=== PATIENT | female | born 1970 | race Caucasian/White ===

== ENCOUNTER 2024-06-28 10:05 | Inpatient (IN) | payer OTHER, SELFPAY ==
--- NOTE | 2024-06-28 10:12 | CTR_ITS ---
PROCEDURE INFORMATION: Exam: CT Lumbar Spine Without Contrast Exam date and time: 06/28/2024 10:43 AM Age: 53 years old Clinical indication: Low back pain TECHNIQUE: Imaging protocol: Computed tomography of the lumbar spine without contrast. Radiation optimization: All CT scans at this facility use at least one of these dose optimization techniques: automated exposure control; mA and/or kV adjustment per patient size (includes targeted exams where dose is matched to clinical indication); or iterative reconstruction. COMPARISON: No relevant prior studies available. RADIATION DOSE METRICS: Total DLP (mGy-cm): 804.3 FINDINGS: Bones/joints: There are mild degenerative changes of the sacroiliac joints. Post posterior decompression at L3-L5. No compression deformity no acute fracture. No spondylolisthesis. Posterior osteophyte disc complexes L2-L3, L3-L4 and L4-L5 with mild bony canal stenosis. [id number] narrowing of the L4-L5 and L5-S1 neural foramina. Vasculature: Calcified atheromas of the visualized arteries. Soft tissues: Unremarkable. CT/CT lumbar spine wo con* [id number] IMPRESSION: 1. Post posterior decompression at L3-L5. 2. Mild multilevel bony canal stenosis and [id number] neural foraminal narrowing.
--- NOTE | 2024-06-28 10:15 | ED_ITS ---
HPI - Back Pain/Injury General: Chief Complaint: Extremity Problem,Nontraumatic Stated Complaint: lower back pain Time Seen by Provider: 06/28/24 10:09 History of Present Illness: 53-year-old female with a history of chr onic back issues with worsening symptoms over the last 3 weeks. She says she just moved to the area. She has an appointment next week with Dr. Lobo and orthopedics. She says the pain has become so bad that she just cannot take it anymore. She is quite tearful. She says she has some cramping in her legs now. She feels like her right leg is turning out. No saddle numbness, no urinary retention or incontinence, no focal motor deficit, no sensory deficit. no recent fever. no cough. no shortness of breath. no chest pain. no abdominal pain. no nausea or vomiting. no dysuria. no altered mental status. no edema. Related Data Home Medications ?Medication ?Instructions ?Recorded ?Confirmed acetaminophen 500 mg tablet 1,000 mg PO Q6H PRN Fever Or Pain 06/28/24 06/28/24 (Tylenol Extra Strength) amlodipine 10 mg-valsartan 320 mg 1 tab PO DAILY 06/2806/28/24 tablet levothyroxine 175 mcg tablet 175 mcg PO DAILY 06/28/24 06/28/24 metoprolol succinate 100 mg 200 mg PO DAILY 06/28/24 0 06/28/24 tablet,extended release 24 hr rosuvastatin 40 mg tablet 40 mg PO DAILY 06/28/2406/14 Previous Rx's ?Medication ?Instructions ?Recorded cyclobenzaprine 10 mg tablet 10 mg PO Q8H PRN muscle s pasm #20 06/28/24 tabs diclofenac sodium 50 mg 50 mg PO BID PRN pain #14 ta bs 06/28/24 tablet,delayed release hydrocodone 5 mg-acetaminophen 325 1 tab PO Q6H PRN pa in #20 tabs 06/28/24 mg tablet prednisone 20 mg tablet 60 mg (3 x 20 mg) PO DAILY # 20 tabs 06/28/24 Review of Systems Narrative: Constitutional symptoms: Negative except as documented in HPI. Skin symptoms: Negative except as documented in HPI. Eye symptoms: Negative except as documented in HPI. ENMT symptoms: Negative except as documented in HPI. Respiratory symptoms: Negative except as documented in HPI. Cardiovascular symptoms: Negative except as documented in HPI. Gastrointestinal symptoms: Negative except as documented in HPI. Genitourinary symptoms: Negative except as documented in HPI. Musculoskeletal symptoms: Negative except as documented in HPI. Neurologic symptoms: Negative except as documented in HPI. Psychiatric symptoms: Negative except as documented in HPI. Endocrine symptoms: Negative except as documented in HPI. Physical Exam Narrative: EXAM NARRATIVE: General: Alert, no acute distress. Head: Normocephalic Neck: Trachea midline Eye: Extraocular movements are intact. Ears, nose, mouth and throat: Oral mucosa moist Respiratory: Respirations are non-labored Musculoskeletal: Normal ROM Back: no step off, no focal tenderness, some paraspinal muscle tenderness. The patient does appear to have some mild foot drop whenever she walks. This is on the right side. Neurological: Alert and oriented, No focal neurological deficit observed. Psychiatric: Cooperative, appropriate mood & affect. Course Vital Signs: Vital signs: Vital Signs Temperature 97.8 F 06/28/24 10:18 Pulse Rate 80 06/28/24 10:18 Respiratory Rate 18 06/28/24 10:18 Blood Pressure 144/83 06/28/24 10:18 Pulse Oximetry 98 06/28/24 10:18 MDM - Back Pain/Injury Medical Decision Making CT of lumbar spine: Status post decompression and L3-L5. Multilevel bony stenosis and mild to moderate neural foraminal narrowing. This was reviewed and interpreted by myself the emergency room physician. I also reviewed the radiology report. MRI of the lumbar spine: L3-L4 paracentral disc extrusion with caudal migration posterior to the L4 vertebral body causing compression of the right L4 nerve. This was reviewed and interpreted by myself the emergency room physician. I also reviewed the radiology report. Consultation: I spoke with Dr. Lobo who is on-call for orthopedics today and who is scheduled to see the patient next week in clinic. Given her neurologic symptoms and difficult to control symptoms he has agreed to see her in the hospital and likely work her in on Sunday for surgery. Consultation: I spoke with Dr. James Cates who is on-call for the hospitalist service who agrees to admission. Assessment and plan: Lumbar disc extrusion Right foot drop ?Patient received Norflex, Dilaudid, Toradol, Decadron. Also some IV Ativan prior to the MRI. -I discussed the patient with the hospitalist on-call who is admitting the patient. - Discussed findings and plan with patient. Answered any questions. - All imaging was reviewed and interpreted personally by myself, the ER physician. - Evaluation and treatment of this problem were appropriate in the emergency setting Labs Radiology Impressions Lumbar Spine CT 06/28/24 10:12 IMPRESSION: 1. Post posterior decompression at L3-L5. 2. Mild multilevel bony canal stenosis and [id number] neural foraminal narrowing. Lumbar Spine MRI 06/28/24 11:58 IMPRESSION: Right L3-L4 paracentral disc extrusion with caudal migration posterior to the L4 vertebral body, causing compression of the right L4 nerve. 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
[2024-06-28 10:18] VITALS: BP 144/83; PULSE 80; RESP 18; TEMP 36.6; O2SAT 98; BMI 28.8
[2024-06-28] MEDS: dexamethasone 10 mg/mL INJ IVP (10:43)
[2024-06-28] MEDS: ondansetron 2 mg/ML SDV 2 mL 4 MG IVP (10:44)
[2024-06-28] MEDS: orphenadrine 30 mg/mL Inj 2 mL 60 MG IVP (10:44)
[2024-06-28] MEDS: ketorolac 30 mg/mL INJ IVP (10:44)
--- NOTE | 2024-06-28 11:58 | MRR_ITS ---
PROCEDURE INFORMATION: Exam: MR Lumbar Spine Without Contrast Exam date and time: 06/28/2024 12:39 PM Age: 53 years old Clinical indication: Low back pain; Prior surgery; Surgery date: 6+ months; Surgery type: Diskectomy, laminectomy 2013, 2017; Additional info: Right foot drop. Low back pain TECHNIQUE: Imaging protocol: Magnetic resonance imaging of the lumbar spine without contrast. COMPARISON: CT lumbar spine wo con* [id number] 06/28/2024 10:43 AM FINDINGS: Bones/joints: Surgical changes of posterior L3-L5 decompression. No bone marrow replacement. Spinal cord: Visualized cord, conus medullaris and cauda equina are unremarkable without compression. L1-L2: Mild posterior disc bulge. No severe spinal canal stenosis. No significant neural foraminal narrowing. L2-L3: Desiccation of the disc with narrowing of the disc space. There is a posterior osteophyte disc complex causing mild thecal sac compression. No significant neural foraminal stenosis. L3-L4: There is a posterior osteophyte disc complex with right paracentral disc extrusion with caudal migration compressing the descending right L4 nerve root. No significant neural foraminal stenosis. L4-L5: There are Modic type 1 endplate changes (edema) at L4-L5 level. Posterior osteophyte disc complex with minimal anterior thecal sac compression. There is mild to moderate narrowing of bilateral neural foramina. L5-S1: Mild narrowing of the right neural foramen by disc bulge. Soft tissues: Mild edema in the soft tissues at the surgical bed. No collections are seen. MR/MR lumbar spine wo con* [id number] IMPRESSION: Right L3-L4 paracentral disc extrusion with caudal migration posterior to the L4 vertebral body, causing compression of the right L4 nerve.
[2024-06-28] MEDS: LORazepam 2 mg/mL INJ 1 mL 1 MG IVP (12:25)
[2024-06-28 16:00] VITALS: BP 141/72; PULSE 70; RESP 16; TEMP 36.4; O2SAT 94
[2024-06-28] MEDS: enoxaparin 40 mg/0.4 mL Syringe SUBCUT (16:02)
[2024-06-28 16:12] VITALS: BP 155/73; PULSE 62; O2SAT 95
--- NOTE | 2024-06-28 16:18 | USCV_ITS ---
Irma Vaz Age: 53 Gender: F : 1970 Exam Date: 06/28/2024 17:20 Ordering Phys: James Cates MD Technologist: Abrahan Scanlon Exam Location: [facility] [place] Indication: new murmur BP: 155 / 73 HR: 68 Rhythm: Sinus Technical Quality: Adequate MEASUREMENTS (Male / Female) Normal Values 2D ECHO LV Diastolic Diameter PLAX 4.7 cm 4.2 - 5.9 / 3.9 - 5.3 cm IVS Diastolic Thickness 0.9 cm 0.6 - 1.0 / 0.6 - 0.9 cm IVS Systolic Thickness 1.7 cm LVPW Diastolic Thickness 1.8 cm 0.6 - 1.0 / 0.6 - 0.9 cm LVPW Systolic Thickness 2.6 cm LVOT Diameter 2.0 cm LV Ejection Fraction 2D Teich 81.9 % LV Ejection Fraction MOD 4C 75.5 % LV Ejection Fraction MOD 2C 74.7 % LV Ejection Fraction 2C AL 74.8 % LA Diameter 3.5 cm RA Systolic Volume 4C AL 58.2 ml RA Systolic Volume 4C MOD 57.2 ml LA Sys Volume AL 49.4 cm cubed LA Sys Volume Index AL 23.8 cm cubed/m squared Aorta at Sinotubular Diameter 2.2 cm IVC Diameter 1.6 cm M-MODE LA Ao Ratio MM 1.3 AV Cusp Separation MM 1.2 cm DOPPLER AV Peak Velocity 252.0 cm/s LVOT Peak Velocity 115.0 cm/s AV Area Cont Eq vti 1.4 cm squared AV Area Cont Eq pk 1.5 cm squared MV Peak Velocity 104.0 cm/s MV Area PHT 5.2 cm squared Mitral E to A Ratio 0.7 TV Peak Velocity 201.0 cm/s TR Peak Velocity 250.0 cm/s TR Peak Gradient 25.0 mmHg TR Mean Velocity 198.0 cm/s TR Mean Gradient 16.4 mmHg TR Velocity Time Integral 63.4 cm PV Peak Velocity 101.0 cm/s RV Ejection Time 0.3 s FINDINGS Left Ventricle Normal left ventricular size, systolic function and wall thickness, with no regional wall motion abnormalities. Left ventricular ejection fraction is estimated at 60 %. Grade I/IV diastolic dysfunction (abnormal relaxation filling pattern), normal to mildly elevated filling pressures. Right Ventricle The right ventricle is normal in size and function. Right Atrium The right atrium is normal in size. Left Atrium The left atrium is normal in size. Mitral Valve Mildly thickened mitral valve. No mitral valve stenosis. Trace mitral valve regurgitation. Aortic Valve Moderate aortic valve calcification. No aortic valve stenosis. Trace aortic valve regurgitation. Tricuspid Valve Mild tricuspid valve regurgitation. Pulmonic Valve Structurally normal pulmonic valve without significant stenosis. There is no pulmonic regurgitation. Pericardium Normal pericardium without effusion. Aorta Normal ascending aorta dimension. IVC The inferior vena cava appears normal. CONCLUSIONS Normal left ventricular size, systolic function and wall thickness, with no regional wall motion abnormalities. Left ventricular ejection fraction is estimated at 60 %. Grade I/IV diastolic dysfunction (abnormal relaxation filling pattern), normal to mildly elevated filling pressures. Mild tricuspid valve regurgitation. There is no pericardial effusion. Right atrial pressure is around 5 mm of mercury. Joseph Singh MD (Electronically Signed) Final Date: 28 June 2024 18:49 S
[2024-06-28 16:44] LABS: Glucose Point of Care 207 mg/dL (70-110)
[2024-06-28] MEDS: cyclobenzaprine 10 mg Tablet PO (17:12)
[2024-06-28] MEDS: insulin lispro 100 unit/1 mL SUBCUT ×2 (17:13→21:09)
[2024-06-28 19:43] VITALS: BP 159/89; PULSE 81; RESP 17; TEMP 36.6; O2SAT 91
--- NOTE | 2024-06-28 20:09 | PM.HP ---
Providers/Chief Complaint Admitting Physician: James Cates Chief Complaint: lower back pain History of Present Illness Irma Vaz is a 53 year old female past medical history of hyperlipidemia, hypertension, diabetes mellitus, back surgery with post op DVT (no longer on OAC) and history of lap band surgery with postoperative blood clot presents with right leg weakness and difficulty walking for past 3 weeks. The patient describes the right leg as dragging and not moving with her when she walks at times. Associated symptoms include back pain with pain radiating to her right knee. Intermittently feels her right great toe is numb and might have a foot drop feeling. The patient denies any loss of bowel/bladder control today. No saddle anesthesia. She had a scheduled appointment with orthopedic surgery this up coming weak hwoever due to pain presented to ER. Currently 1 pack per day smoking and vaping cannabis daily. Denied alcohol use. No prior cardiac history. Upon arrival to ER today her work up included a lumbar CT followed by an lumbar MRI which showed Right L3-L4 paracentral disc extrusion with caudal migration posterior to the L4 vertebral body, causing compression of the right L4 nerve. no evidence of cord compression. No labs were drawn. Ortho was consulted in ER Medications/Allergies Home Medications ?Medication ?Instructions ?Recorded ?Confirmed ?Last Taken ?Type acetaminophen 500 mg tablet 1,000 mg PO Q6H PRN Fever Or Pain 06/28/24 06/28/24 06/27/24 History (Tylenol Extra Strength) amlodipine 10 mg-valsartan 320 mg 1 tab PO DAILY 06/28/24 06/28/24 06/27/24 History tablet cyclobenzaprine 10 mg tablet 10 mg PO Q8H PRN muscle spasm #20 06/28/24 Unknown Rx tabs diclofenac sodium 50 mg 50 mg PO BID PRN pain #14 tabs 06/28/24 Unknown Rx tablet,delayed release hydrocodone 5 mg-acetaminophen 325 1 tab PO Q6H PRN pain #20 tabs 06/28/24 Unknown Rx mg tablet levothyroxine 175 mcg tablet 175 mcg PO DAILY 06/28/24 06/28/24 06/27/24 History metoprolol succinate 100 mg 200 mg PO DAILY 06/28/24 06/28/24 06/27/24 History tablet,extended release 24 hr prednisone 20 mg tablet 60 mg (3 x 20 mg) PO DAILY #20 tabs 06/28/24 Unknown Rx rosuvastatin 40 mg tablet 40 mg PO DAILY 06/28/24 06/28/24 06/27/24 History Allergies Allergy/AdvReac Type Severity Reaction Status Date / Time propoxyphene (From Allergy Unknown Verified 06/28/24 16:56 Darvocet-N) Vitals/I&O/Wt Last Vital Signs Temp 97.8 F 06/28/24 19:43 Pulse 81 06/28/24 19:43 Resp 17 06/28/24 19:43 BP 159/89 06/28/24 19:43 Pulse Ox 91 06/28/24 19:43 O2 Del Method Room Air 06/28/24 19:43 06/28/24 06/28/24 06/28/24 06:59 14:59 22:59 Intake Total 120 / 120 Balance 120 / 120 Weight last 48 hrs Weight 87.997 kg Weight 86.183 kg Physical Exam Narrative: General: Alert and oriented HEENT: Grossly unremarkable Cardiovascular: Systolic murmur. No chest pain, lightheadedness, or syncope. Respiratory: Non labored, CTABL Gastrointestinal: Non-distended Musculoskeletal: Right leg weakness, decreased range of motion compared to left. Back pain with right leg raise. Neurological: No saddle anesthesia. A&P Assessment and plan (1) Right foot drop: (2) Lumbar herniated disc: (3) Radiculopathy: (4) Lumbar back pain: Plan Intractable back pain with Right Lower Extremity Weakness - Case was discussed by ER and Ortho - no emergent sx was needed per ER - Admitted for pain control - MRI noted above. Plan: 1. Continue pain control 2. Fall precautions 3. Muscle relaxer 4. Orthospine consulted in ER Systolic Murmur - Newly appreciated pronounced systolic murmur on cardiac auscultation, without known history of valvular disease or heart failure symptoms. Plan: 1. Echocardiogram to assess valvular function and rule out structural abnormalities. Diabetes Mellitus - Type 2 diabetes managed with oral medications. On metformin at home . Plan: 1. Sliding scale insulin 2. Hold meformin for now Hypothyroidism - Primary hypothyroidism treated with levothyroxine 175 mcg daily. No recent dose adjustments. Plan: 1. Continue current levothyroxine Hypertension - Hypertension managed with losartan, metoprolol, amlodipine and valsartan (formulary eq) Plan: 1. Monitor blood pressure closely in the setting of acute neurologic changes. 2. Adjust antihypertensive regimen as needed to maintain goal blood pressure. Hyperlipidemia - On atorvastatin 40 mg daily. Plan: 1. No change to above Tobacco and Marijuana Use Disorder - Current cigarette smoking, half pack per day, and regular marijuana vaping. Plan: 1. Provide resources on cessation PDMP PDMP Reviewed: Not Reviewed Attestations Medical Necessity Statement*: anticiapte over 2 midnight stay for ortho eval, therapy, pain control and cardiac work up Coding Level of Care Code Acute Code for [facility] Diagnoses Right foot drop M21.371 Lumbar herniated disc M51.26 Radiculopathy M54.10 Lumbar back pain M54.50
[2024-06-28 20:32] LABS: Glucose Point of Care 191 mg/dL (70-110)
[2024-06-28] MEDS: atorvastatin 40 mg Tablet PO (21:08)
[2024-06-28] MEDS: metoprolol tartrate 50 mg Tablet 100 MG PO (21:09)
[2024-06-28] MEDS: morphine 4 mg/mL SDV 1 mL 2 MG IVP (21:17)
[2024-06-28] MEDS: zolpidem 5 mg Tablet PO (21:57)
[2024-06-29] VITALS (7 sets, daily range): BP systolic 126–183; BP diastolic 68–90; PULSE 63–81; RESP 16–17; TEMP 36.4–36.9; O2SAT 94–96
[2024-06-29] MEDS: cyclobenzaprine 10 mg Tablet PO ×3 (00:49→20:01)
[2024-06-29] MEDS: morphine 4 mg/mL SDV 1 mL 2 MG IVP (03:24)
[2024-06-29 03:57] LABS: Basophils % 0.1 %; Hematocrit 41.5 % (36-47); Lymphocytes # 2.1 10^3/uL (0.8-4.8); Lymphocytes % 16.9 %; Mean Corpuscular HGB Conc 33.7 g/dL (30-55); Mean Corpuscular Hemoglobin 33.2 pg (27-33); Mean Corpuscular Volume 98.3 fl (85-98); Mean Platelet Volume 10.5 fL (7.4-10.4); Monocytes # 0.4 10^3/uL (0.2-0.9); Monocytes % 3.3 %; Neutrophils % 79.2 %; Nucleated Red Blood Cells % 0 %; Platelet Count 236 10^3/cmm (157-399); Red Blood Count 4.22 10^6/uL (3.85-5.65); Red Cell Distribution Width 13.8 % (12.1-15.1); White Blood Count 12.62 10^3/uL (3.29-11.43)
[2024-06-29 04:33] LABS: Anion Gap 16.3 (5-19); Blood Urea Nitrogen 13 mg/dL (6-20); Calcium 9.9 mg/dL (8.5-10.5); Carbon Dioxide 23 mmol/L (22-29); Chloride 102 mmol/L (98-107); Glomerular Filtration Rate 129.6 mL/min (90-130); Glucose 145 mg/dL (65-115); Osmolality Calculated 287 mOsm/kg (285-295); Potassium 4.3 mmol/L (3.5-5.1); Sodium 137 mmol/L (136-145)
[2024-06-29 04:37] LABS: Thyroid Stimulating Hormone 0.28 uIU/mL (0.27-4.20)
--- NOTE | 2024-06-29 05:47 | PC.NURSE ---
Notified Dr Bah about patient sustaining a blood pressure of 183/75 throughout shift. No new orders at this time.
[2024-06-29 06:37] LABS: Glucose Point of Care 149 mg/dL (70-110)
[2024-06-29] MEDS: sertraline 100 mg Tablet PO (08:09)
[2024-06-29] MEDS: levothyroxine 175 mcg Tablet PO (08:09)
[2024-06-29] MEDS: metoprolol succinate ER (24 HR) 100 mg Tablet 200 MG PO (08:09)
[2024-06-29] MEDS: insulin lispro 100 unit/1 mL SUBCUT ×3 (08:09→21:15)
[2024-06-29] MEDS: amlodipine 10 mg Tablet PO (08:09)
[2024-06-29] MEDS: metoprolol tartrate 50 mg Tablet 100 MG PO ×2 (08:12→20:01)
[2024-06-29] MEDS: ondansetron 2 mg/ML SDV 2 mL 4 MG IVP (08:21)
[2024-06-29] MEDS: HYDROcodone-acetaminophen 5-325 mg Tablet 1 TAB PO ×2 (08:21→13:57)
[2024-06-29 12:05] LABS: Glucose Point of Care 151 mg/dL (70-110)
--- NOTE | 2024-06-29 13:13 | P.CONIM_ITS ---
Providers/Reason For Consult 2 Consulting Physician/Specialty*: Hospitalist Reason for Consult*: Back and right leg pain Attending Physician: James Cates History of Present Illness History of Present Illness Irma Vaz is a 53 year old female has had 2 weeks of worsening back pain last couple days she started having weakness in her right leg. Pain is progressively gotten worse. Patient cannot get in any position to make the pain better. Patient has a history of an L4-5 decompression. Review of Systems 2 General: Reports: 10 or more systems reviewed and unremarkable except in HPI and below Narrative: Constitutional symptoms: Negative except as documented in HPI. Skin symptoms: Negative except as documented in HPI. Eye symptoms: Negative except as documented in HPI. ENMT symptoms: Negative except as documented in HPI. Respiratory symptoms: Negative except as documented in HPI. Cardiovascular symptoms: Negative except as documented in HPI. Gastrointestinal symptoms: Negative except as documented in HPI. Genitourinary symptoms: Negative except as documented in HPI. Musculoskeletal symptoms: Negative except as documented in HPI. Neurologic symptoms: Negative except as documented in HPI. Psychiatric symptoms: Negative except as documented in HPI. Endocrine symptoms: Negative except as documented in HPI. Medications/Allergies Home Medications ?Medication ?Instructions ?Recorded ?Confirmed ?Last Taken ?Type acetaminophen 500 mg tablet 1,000 mg PO Q6H PRN Fever Or Pain 06/28/24 06/28/24 06/27/24 History (Tylenol Extra Strength) amlodipine 10 mg-valsartan 320 mg 1 tab PO DAILY 06/2806/28/24 06/27/24 History tablet cyclobenzaprine 10 mg tablet 10 mg PO Q8H PRN muscle s pasm #20 06/28/24 Unknown Rx tabs diclofenac sodium 50 mg 50 mg PO BID PRN pain #14 ta bs 06/28/24 Unknown Rx tablet,delayed release hydrocodone 5 mg-acetaminophen 325 1 tab PO Q6H PRN pa in #20 tabs 06/28/24 Unknown Rx mg tablet levothyroxine 175 mcg tablet 175 mcg PO DAILY 06/28/24 06/28/24 06/27/24 History metoprolol succinate 100 mg 200 mg PO DAILY 06/28/24 0 06/28/24 06/27/24 History tablet,extended release 24 hr prednisone 20 mg tablet 60 mg (3 x 20 mg) PO DAILY # 20 tabs 06/28/24 Unknown Rx rosuvastatin 40 mg tablet 40 mg PO DAILY 06/28/2406/1406/27/24 History Allergies Allergy/AdvReac Type Severity Reaction Status Date / Time propoxyphene (From Allergy Unknown Verified 06/28/24 16:56 Darrumat-N) Current Medications Generic Name Dose Route Start Last Admin Trade Name Freq PRN Reason Stop Dose Admin Hydrocodone Bitart/Acetaminophen 1 tab 06/28/24 15:16 06/29/24 08:21 Hydrocodone-Acetaminophen 5-325 Mg Tablet PO 1 tab Q4H PRN Administration MODERATE TO SEVERE PAIN Amlodipine Besylate 10 mg 06/29/24 09:00 06/29/24 08:09 Amlodipine 10 Mg Tablet PO 10 mg DAILY RASHID Administration Atorvastatin Calcium 40 mg 06/28/24 21:00 06/28/24 21:08 Atorvastatin 40 Mg Tablet PO 40 mg BEDTIME RASHID Administration Cyclobenzaprine HCl 10 mg 06/28/24 16:20 06/29/24 11:53 Cyclobenzaprine 10 Mg Tablet PO 10 mg TID PRN Administration MUSCLE SPASMS Enoxaparin Sodium 40 mg 06/28/24 15:30 06/28/24 16:02 Enoxaparin 40 Mg/0.4 Ml Syringe SUBCUT 40 mg Q24H RASHID Administration Insulin Human Lispro 0 unit 06/28/24 18:00 06/29/24 12:33 Insulin Lispro 100 Unit/1 Ml SUBCUT 4 unit WM&BEDTIME RASHID Administration Protocol Levothyroxine Sodium 175 mcg 06/29/24 09:00 06/29/24 08:09 Levothyroxine 175 Mcg Tablet PO 175 mcg DAILY RASHID Administration Metoprolol Succinate 200 mg 06/29/24 09:00 06/29/24 08:09 Metoprolol Succinate Er (24 Hr) 100 Mg Tablet PO 200 mg DAILY RASHID Administration Metoprolol Tartrate 100 mg 06/28/24 21:00 06/29/24 08:12 Metoprolol Tartrate 50 Mg Tablet PO 100 mg BID@0900,2100 RASHID Administration Morphine Sulfate 2 mg 06/28/24 15:16 06/29/24 03:24 Morphine 4 Mg/Ml Sdv 1 Ml IVP 2 mg Q4H PRN Administration SEVERE PAIN Ondansetron HCl 4 mg 06/28/24 15:16 06/29/24 08:21 Ondansetron 2 Mg/Ml Sdv 2 Ml IVP 4 mg Q8H PRN Administration vomiting, or N/V if npo Sertraline HCl 100 mg 06/29/24 09:00 06/29/24 08:09 Sertraline 100 Mg Tablet PO 100 mg DAILY RASHID Administration Zolpidem Tartrate 5 mg 06/28/24 21:24 06/28/24 21:57 Zolpidem 5 Mg Tablet PO 5 mg BEDTIME PRN Administration SLEEP Vitals/I&O/Wt Last Vital Signs Temp 97.9 F 06/29/24 12:00 Pulse 65 06/29/24 12:00 Resp 17 06/29/24 12:00 BP 126/68 06/29/24 12:00 Pulse Ox 95 06/29/24 12:00 O2 Del Method Room Air 06/29/24 12:00 06/28/24 06/29/24 06/29/24 22:59 06:59 14:59 Intake Total 120 / 120 720 / 720 Balance 120 / 120 720 / 720 Weight last 48 hrs Weight 199 lb Weight 194 lb Weight 190 lb Physical Exam 2 Const: COMMON NORMALS: no acute distress, average body habitus, patient oriented x3, healthy appearing and well nourished EXAM LIMITATIONS: altered mental status GENERAL APPEARANCE: cooperative, comfortable and well developed ORIENTATION/CONSCIOUSNESS: Yes awake HENMT: COMMON NORMALS: normocephalic HEAD & SCALP: normocephalic FACE & SINUS: face symmetric Neck/C-Spine: COMMON NORMALS: full ROM CERVICAL SPINE: Yes cervical ROM normal Resp: COMMON NORMALS: normal respiratory effort and No use of accessory muscles Extremity: COMMON NORMALS: normal to inspection and full ROM NARRATIVE EXTREMITY EXAM: Patient has weakness and EHL and dorsiflexion on the right side normal on the left Hypersensitive to touch on the right. Hyperreflexic deep tendon reflex on the right Neuro: COMMON NORMALS: patient oriented x3 DEEP TENDON REFLEXES: Left patellar reflex intensity grade: 3+ Sepsis: Is patient septic: No Focused sepsis exam performed: No Data 06/29/24 03:16 06/29/24 03:16 A&P Assessment and plan (1) Radiculopathy: Patient has progressive weakness of her right leg. Weakness in the EHL and dorsiflexion. MRIs reviewed shows extruded disc fragment compressing into the L4 nerve on the right. With the progressive symptoms I would like to perform a right L3-4 microdiscectomy. I had an open and honest discussion with the patient about the risks, benefits and alternatives to both surgical and nonsurgical treatment. The patient verbalized understanding of the inherent unpredictability associated with surgery. Risk of surgery were discussed including, but not limited to, infection, bleeding, temporary and permanent nerve damage, continued pain, stiffness, incomplete healing, need for revision surgery, blood clot and other complications. The patient verbalized understanding that there is spine is elective in nature and if they find any of these risks to be unacceptable then they should choose not to have the surgery. The patient verbalized understanding of these risks and elected to proceed with the surgery. Patient does not have signs of cauda equina Qualifiers: Spinal region: lumbar Qualified Code(s): M54.16 - Radiculopathy, lumbar region PDMP PDMP Reviewed: Not Reviewed Consult Attestations 2 Medical Necessity Statement: Progressive weakness Coding Level of Care Code Acute Code for [facility] Diagnoses Lumbar radiculopathy M54.16 Spinal region: lumbar
[2024-06-29] MEDS: enoxaparin 40 mg/0.4 mL Syringe SUBCUT (15:06)
--- NOTE | 2024-06-29 16:18 | P.PN_ITS ---
Subjective 2 Subjective: Patient noted improvement in her LE weakness. Still noted some weakness with dorsiflexion. No fever, or chill, no nausea or vomiting. Pain was controlled. Medications: Reviewed: Yes Vitals/I&O/Wt Last Vital Signs Temp 97.9 F 06/29/24 12:00 Pulse 65 06/29/24 12:00 Resp 17 06/29/24 12:00 BP 126/68 06/29/24 12:00 Pulse Ox 95 06/29/24 12:00 O2 Del Method Room Air 06/29/24 12:00 06/29/24 06/29/24 06/29/24 06:59 14:59 22:59 Intake Total 720 / 720 Balance 720 / 720 Weight last 48 hrs Weight 90.265 kg Weight 87.997 kg Weight 86.183 kg Physical Exam 2 Narrative: General: Alert and oriented HEENT: Grossly unremarkable Cardiovascular: Systolic murmur. No chest pain, lightheadedness, or syncope. Respiratory: Non labored, CTABL Gastrointestinal: Non-distended Musculoskeletal: Right leg weakness, decreased range of motion compared to left. Back pain with right leg raise.- improved today Neurological: No saddle anesthesia. Data 06/29/24 03:16 06/29/24 03:16 A&P Assessment and plan (1) Right foot drop: (2) Lumbar herniated disc: (3) Radiculopathy: Qualifiers: Spinal region: lumbar Qualified Code(s): M54.16 - Radiculopathy, lumbar region (4) Lumbar back pain: Plan Intractable back pain with Right Lower Extremity Weakness - Case was discussed by ER and Ortho - MRI- no evidence of cord compression Plan: 1. Continue pain control 2. Fall precautions 3. Muscle relaxer 4. Ortho consulted 5. NPO at midnight for surgery in am Systolic Murmur - Newly appreciated pronounced systolic murmur on cardiac auscultation, without known history of valvular disease or heart failure symptoms. - Echocardiogram -> Normal left ventricular size, systolic function and wall thickness, with no regional wall motion abnormalities. Left ventricular ejection fraction is estimated at 60 %. Grade I/IV diastolic dysfunction (abnormal relaxation filling pattern), normal to mildly elevated filling pressures. Mild tricuspid valve regurgitation. There is no pericardial effusion. Plan: 1. No further cardiac work up planned Diabetes Mellitus - Type 2 diabetes managed with oral medications. On metformin at home . Plan: 1. Sliding scale insulin 2. Hold meformin for now Hypothyroidism - Primary hypothyroidism treated with levothyroxine 175 mcg daily. No recent dose adjustments. Plan: 1. Continue current levothyroxine Hypertension - Hypertension managed with losartan, metoprolol, amlodipine and valsartan (formulary eq) Plan: 1. Monitor blood pressure closely in the setting of acute neurologic changes. 2. Adjust antihypertensive regimen as needed to maintain goal blood pressure. Hyperlipidemia - On atorvastatin 40 mg daily. Plan: 1. No change to above Tobacco and Marijuana Use Disorder - Current cigarette smoking, half pack per day, and regular marijuana vaping. Plan: 1. Provide resources on cessation PDMP PDMP Reviewed: Not Reviewed Attestations 2 Medical Necessity Statement*: Will require further hospitalization for surgery in am Coding Level of Care Code Acute Code for Chg Fwd Diagnoses Right foot drop M21.371 Lumbar herniated disc M51.26 Lumbar radiculopathy M54.16 Spinal region: lumbar Lumbar back pain M54.50
[2024-06-29 16:56] LABS: Glucose Point of Care 110 mg/dL (70-110)
[2024-06-29] MEDS: zolpidem 5 mg Tablet PO (20:01)
[2024-06-29] MEDS: atorvastatin 40 mg Tablet PO (20:01)
[2024-06-29 20:26] LABS: Glucose Point of Care 172 mg/dL (70-110)
[2024-06-30] VITALS (16 sets, daily range): BP systolic 109–165; BP diastolic 60–93; PULSE 57–72; RESP 14–18; TEMP 36.4–36.7; O2SAT 92–97
--- NOTE | 2024-06-30 | XR_ITS ---
WS: [id number] Lumbar spine, C-arm fluoroscopy views, 06/30/2024 Clinical Data: ANI PICS Comparison: None. Findings: Dr. Lobo performed a lumbar decompression. XR/XR lumbar spine 2-3V* [id number] Impression: Lumbar decompression.
[2024-06-30] MEDS: cyclobenzaprine 10 mg Tablet PO (05:45)
[2024-06-30] MEDS: morphine 4 mg/mL SDV 1 mL 2 MG IVP (05:50)
[2024-06-30 05:51] LABS: Basophils # 0.1 10^3/uL (0.0-0.1); Basophils % 0.4 %; Eosinophils # 0.1 10^3/uL (0.0-0.8); Eosinophils % 0.4 %; Hematocrit 37.9 % (36-47); Lymphocytes # 4.3 10^3/uL (0.8-4.8); Lymphocytes % 35.6 %; Mean Corpuscular HGB Conc 35.9 g/dL (30-55); Mean Corpuscular Hemoglobin 34.5 pg (27-33); Mean Corpuscular Volume 96.2 fl (85-98); Mean Platelet Volume 10.6 fL (7.4-10.4); Monocytes # 0.8 10^3/uL (0.2-0.9); Monocytes % 6.6 %; Neutrophils # 6.79 10^3/uL (1.8-7.7); Neutrophils % 56.6 %; Nucleated Red Blood Cells % 0 %; Platelet Count 217 10^3/cmm (157-399); Red Blood Count 3.94 10^6/uL (3.85-5.65); Red Cell Distribution Width 14.1 % (12.1-15.1)
[2024-06-30 06:06] LABS: Blood Urea Nitrogen 13 mg/dL (6-20); Calcium 9.6 mg/dL (8.5-10.5); Carbon Dioxide 21 mmol/L (22-29); Chloride 105 mmol/L (98-107); Glomerular Filtration Rate 129.6 mL/min (90-130); Glucose 95 mg/dL (65-115); Osmolality Calculated 288 mOsm/kg (285-295); Sodium 139 mmol/L (136-145)
[2024-06-30 06:07] LABS: Anion Gap 17.5 (5-19); Potassium 4.5 mmol/L (3.5-5.1)
[2024-06-30 06:19] LABS: Glucose Point of Care 108 mg/dL (70-110)
[2024-06-30] MEDS: HYDROcodone-acetaminophen 5-325 mg Tablet 1 TAB PO (08:53)
[2024-06-30] MEDS: levothyroxine 175 mcg Tablet PO (08:54)
[2024-06-30] MEDS: amlodipine 10 mg Tablet PO (08:54)
[2024-06-30] MEDS: metoprolol succinate ER (24 HR) 100 mg Tablet 200 MG PO (08:54)
[2024-06-30] MEDS: sertraline 100 mg Tablet PO (08:54)
[2024-06-30] MEDS: metoprolol tartrate 50 mg Tablet 100 MG PO ×2 (08:57→22:00)
--- NOTE | 2024-06-30 09:56 | PC.CHAP ---
Pastoral Care Encounter/Spiritual Assessment Type of Contact [] Declined claims collector visit [] Patient/Family/Request visit [] Outpatient visit [] Follow-up visit [] Physician referral [] Code/Alert [x] Routine visit [] Staff referral [] Actively dying [] Patient sleeping [] Family support [] [] Out of room [] Palliative care [] [] Receiving care in room [] Pre-surgical visit [] Trauma [] Long length of stay [] ICU visit [] Other: Relational/Emotional Strength [] Patient feels connected with others/family/visitors/staff [] Distress [] Loneliness/isolation [] Abandonment Spirituality of Patient [x] Person of [place] [] Attends Orthodox of their [place] [x] Believes in Prayer [] Reads Bible or Jewish materials [] There are Spiritual issues to be addressed [employer] T[employer] Interventions [x] Prayer [x] Active listening [] Non-anxious presence [] Spiritual/emotional support [] Crisis/trauma care [] Spiritual counseling [] Bereavement support [] Provided bereavement packet [x] Provided Bible/devotional materials [] Provided toy/stuffed animal, coloring book to patient or family member [] Provided Communion [] Anointing/[place] [] Salvation [x] Completed spiritual assessment [] Other: Impact on Illness or Injury [] Angry [] Fearful [] Anxious [] Often cries [] Exhaustion [] Unable to work [] Unable to attend anabaptist [] Unable to walk/stand [] Unable to read [] Unable to drive [] Unable to eat/drink [] Unable to sleep [] Unable to be with family [] Patient intubated [] Other: Summary Time spent with patient 5 min
[2024-06-30 10:46] LABS: Glucose Point of Care 96 mg/dL (70-110)
--- NOTE | 2024-06-30 10:55 | ANES.PREANE2 ---
Pre-Anesthetic Assessment Height/Weight: Height 1.73 m Weight 89.993 kg Temp Pulse Resp BP Pulse Ox O2 Del Method 98.0 F 57 L 16 153/80 95 Room Air 06/30/24 07:57 06/30/24 07:57 06/30/24 07:57 06/30/24 07:57 06/30/24 07:57 06/30/24 07:57 Operation Date: 06/30/24 16:00 Proposed Procedures p Right L3-4 microdiscectomy(Right) - Prateek Lobo DO Familial anesthetic complications: None Was Beta Myla taken within 24 hours: N/A Was Clonidine taken within 24 hours: N/A Last intake: Intake Last Liquid Time 22:00 Last Solid Time 22:00 Social Tobacco and No alcohol Marijuana Airway Mallampati: Class II Dentition: caps (One out in front) CV/HEM Hypertension GI Hx lab band Metabolic Hyperlipidemia and Thyroid Disease Anesthetic Plan ASA status: 3 Anesthesia: General Risk of > 500 ml blood loss (7ml/kg in children): No Medications/Allergies Home Medications ?Medication ?Instructions ?Recorded ?Confirmed ?Last Taken ?Type acetaminophen 500 mg tablet 1,000 mg PO Q6H PRN Fever Or Pain 06/28/24 06/28/24 06/27/24 History (Tylenol Extra Strength) amlodipine 10 mg-valsartan 320 mg 1 tab PO DAILY 06/28/24 06/28/24 06/27/24 History tablet cyclobenzaprine 10 mg tablet 10 mg PO Q8H PRN muscle spasm #20 06/28/24 Unknown Rx tabs diclofenac sodium 50 mg 50 mg PO BID PRN pain #14 tabs 06/28/24 Unknown Rx tablet,delayed release hydrocodone 5 mg-acetaminophen 325 1 tab PO Q6H PRN pain #20 tabs 06/28/24 Unknown Rx mg tablet levothyroxine 175 mcg tablet 175 mcg PO DAILY 06/28/24 06/28/24 06/27/24 History metoprolol succinate 100 mg 200 mg PO DAILY 06/28/24 06/28/24 06/27/24 History tablet,extended release 24 hr prednisone 20 mg tablet 60 mg (3 x 20 mg) PO DAILY #20 tabs 06/28/24 Unknown Rx rosuvastatin 40 mg tablet 40 mg PO DAILY 06/28/24 06/28/24 06/27/24 History Allergies Allergy/AdvReac Type Severity Reaction Status Date / Time propoxyphene (From Allergy Unknown Verified 06/28/24 16:56 Ai-Mir) Current Medications Generic Name Dose Route Start Last Admin Trade Name Freq PRN Reason Stop Dose Admin Hydrocodone Bitart/Acetaminophen 1 tab 06/28/24 15:16 06/30/24 08:53 Hydrocodone-Acetaminophen 5-325 Mg Tablet PO 1 tab Q4H PRN Administration MODERATE TO SEVERE PAIN Amlodipine Besylate 10 mg 06/29/24 09:00 06/30/24 08:54 Amlodipine 10 Mg Tablet PO 10 mg DAILY RASHID Administration Atorvastatin Calcium 40 mg 06/28/24 21:00 06/29/24 20:01 Atorvastatin 40 Mg Tablet PO 40 mg BEDTIME RASHID Administration Cyclobenzaprine HCl 10 mg 06/28/24 16:20 06/30/24 05:45 Cyclobenzaprine 10 Mg Tablet PO 10 mg TID PRN Administration MUSCLE SPASMS Enoxaparin Sodium 40 mg 06/28/24 15:30 06/29/24 15:06 Enoxaparin 40 Mg/0.4 Ml Syringe SUBCUT 40 mg Q24H RASHID Administration Insulin Human Lispro 0 unit 06/28/24 18:00 06/30/24 07:15 Insulin Lispro 100 Unit/1 Ml SUBCUT Not Given WM&BEDTIME RASHID Protocol Levothyroxine Sodium 175 mcg 06/29/24 09:00 06/30/24 08:54 Levothyroxine 175 Mcg Tablet PO 175 mcg DAILY RASHID Administration Metoprolol Succinate 200 mg 06/29/24 09:00 06/30/24 08:54 Metoprolol Succinate Er (24 Hr) 100 Mg Tablet PO 200 mg DAILY RASHID Administration Metoprolol Tartrate 100 mg 06/28/24 21:00 06/30/24 08:57 Metoprolol Tartrate 50 Mg Tablet PO 100 mg BID@0900,2100 RASHID Administration Morphine Sulfate 2 mg 06/28/24 15:16 06/30/24 05:50 Morphine 4 Mg/Ml Sdv 1 Ml IVP 2 mg Q4H PRN Administration SEVERE PAIN Ondansetron HCl 4 mg 06/28/24 15:16 06/29/24 08:21 Ondansetron 2 Mg/Ml Sdv 2 Ml IVP 4 mg Q8H PRN Administration vomiting, or N/V if npo Sertraline HCl 100 mg 06/29/24 09:00 06/30/24 08:54 Sertraline 100 Mg Tablet PO 100 mg DAILY RASHID Administration Zolpidem Tartrate 5 mg 06/28/24 21:24 06/29/24 20:01 Zolpidem 5 Mg Tablet PO 5 mg BEDTIME PRN Administration SLEEP Data Anesthesia 06/30/24 05:18 06/30/24 05:18 Short CBC 06/29/24 06/30/24 Range/Units 03:16 05:18 WBC 12.62 H 12.00 H (3.29-11.43) 10^3/uL Hgb 14.00 13.60 (11.27-16.99) g/dL Hct 41.5 37.9 (36-47) % MCV 98.3 H 96.2 (85-98) fl Plt Count 236 217 (157-399) 10^3/cmm Neut % (Auto) 79.2 56.6 % Neut # (Auto) 10.00 H 6.79 (1.8-7.7) 10^3/uL BMP 06/29/24 06/30/24 03:16 05:18 Sodium 137 139 Potassium 4.3 4.5 Chloride 102 105 Carbon Dioxide 23 21 L BUN 13 13 Creatinine 0.5 0.5 Glucose 145 H 95 Calcium 9.9 9.6 Cardiac Studies: Echocardiogram 06/28/24
[2024-06-30] MEDS: sodium chloride 0.9% 1,000 ML 30 ML IV (11:59)
[2024-06-30] MEDS: fentaNYL 50 mcg/mL INJ 2mL IVP (14:15)
[2024-06-30] MEDS: ceFAZolin 2,000 mg SDV 2000 MG IVP (14:43)
[2024-06-30] MEDS: lidocaine-epi 1% 20 mL INJ 10 ML INJECTION (15:18)
--- NOTE | 2024-06-30 15:50 | PM.OP ---
Operative Report Date of procedure: June 30, 2024 Pre-op diagnosis: L3-4 disc herniation with radiculopathy Post-op diagnosis: same Procedure done: Right lumbar 3/4 laminectomy with partial facetectomy and discectomy Surgeon: Prateek Lobo DO Estimated blood loss (mL): 5 Procedure: Right L3-4 laminectomy with partial facetectomy and discectomy Patient is brought to the operative suite. After undergoing anesthesia they are placed in the prone position. All areas of impingement are well padded. Patient is then prepped and draped in the normal sterile fashion. A skin incision is made over the L3/4 level. This is confirmed under c-arm guidance. A series of dilators are passed and the tubular retractor is docked on the L3 lamina. A bovie is used to clear the soft tissue off the lamina and the L 3/4 facet joint. A high speed joan is then used to perform the laminectomy and take down the medial aspect of the L 3/4 facet joint. A kerrison rongeure was then used to take down the remaining lamina and smooth the edge of the laminectomy up to the point where the ligamentum flavum attaches. Attention was then brought to the medial aspect of the facet joint. The remaining medial aspect of the superior and inferior aspect of the facet joint were taken down with the kerrison from the pedicle of L3 to L 4. The facet joint had significant hypertrophy. Attention was then brought to the Ligamentum Flavum. The ligament was taken down from the lamina of L3 to L4 and out medially to the remaining facet joint. The ligament was thick with some scarring. The dura was then exposed. The dura was in good repair. The L3 nerve was then traced with a curette out the L3/4 foramen and found to be adequately decompressed. The L4 nerve was traced with a curette around the L4 pedicle. The lateral recess was opened with a kerrison helping to further decompress the L4 nerve. The L4 nerve root was reflected medially. The disc extrusion was immediately present. The disc extrusion then was removed in 1 large fragment. And then some small fragments were removed. Wound is then irrigated copiously with saline and surgiflo is used to stop any bleeding. The tubular retractor is removed and the wound is closed with vicryl and monocryl suture. Glue is then used to protect the wound. A sterile dressing is then placed. Patient was then placed in the supine position and transferred to the PACU in stable condition.
--- NOTE | 2024-06-30 16:35 | ANE.PACU2 ---
Inpatient post-anesthesia follow up: Airway intact: Yes Vital signs: Temperature 97.9 F Pulse Rate 67 Respiratory Rate 17 Blood Pressure 141/72 Pulse Oximetry 90 Oxygen Delivery Me thod Room Air Oxygen Flow Rate Fraction of Inspir ed Oxygen Hydration adequate: Yes Nausea and vomiting: No Pain level: 1 Mental status: Baseline
--- NOTE | 2024-06-30 17:15 | P.PN_ITS ---
Subjective 2 Subjective: Patient in the OR today for surgical intervention. Medications: Reviewed: Yes Vitals/I&O/Wt Last Vital Signs Temp 97.5 F L 06/30/24 16:23 Pulse 65 06/30/24 16:23 Resp 16 06/30/24 16:23 BP 113/60 06/30/24 16:23 Pulse Ox 95 06/30/24 16:23 O2 Del Method Room Air 06/30/24 16:23 06/30/24 06/30/24 06/30/24 06:59 14:59 22:59 Intake Total 0 / 1200 100 / 100 Output Total 5 / 5 Balance 0 / 1200 95 / 95 Weight last 48 hrs Weight 89.993 kg Weight 90.265 kg Physical Exam 2 Narrative: Patient was in the OR at time of rounds. Will attempt to see her postsurgically Data 06/30/24 05:18 06/30/24 05:18 A&P Assessment and plan (1) Right foot drop: (2) Lumbar herniated disc: (3) Radiculopathy: Qualifiers: Spinal region: lumbar Qualified Code(s): M54.16 - Radiculopathy, lumbar region (4) Lumbar back pain: Plan Intractable back pain with Right Lower Extremity Weakness - Case was discussed by ER and Ortho - MRI- no evidence of cord compression Plan: 1. Continue pain control 2. Fall precautions 3. Muscle relaxer 4. Ortho consulted 5. NPO at midnight for surgery in am Systolic Murmur - Newly appreciated pronounced systolic murmur on cardiac auscultation, without known history of valvular disease or heart failure symptoms. - Echocardiogram -> Normal left ventricular size, systolic function and wall thickness, with no regional wall motion abnormalities. Left ventricular ejection fraction is estimated at 60 %. Grade I/IV diastolic dysfunction (abnormal relaxation filling pattern), normal to mildly elevated filling pressures. Mild tricuspid valve regurgitation. There is no pericardial effusion. Plan: 1. No further cardiac work up planned Diabetes Mellitus - Type 2 diabetes managed with oral medications. On metformin at home . Plan: 1. Sliding scale insulin 2. Hold meformin for now Hypothyroidism - Primary hypothyroidism treated with levothyroxine 175 mcg daily. No recent dose adjustments. Plan: 1. Continue current levothyroxine Hypertension - Hypertension managed with losartan, metoprolol, amlodipine and valsartan (formulary eq) Plan: 1. Monitor blood pressure closely in the setting of acute neurologic changes. 2. Adjust antihypertensive regimen as needed to maintain goal blood pressure. Hyperlipidemia - On atorvastatin 40 mg daily. Plan: 1. No change to above Tobacco and Marijuana Use Disorder - Current cigarette smoking, half pack per day, and regular marijuana vaping. Plan: 1. Provide resources on cessation June 30, 2024 Afebrile, hemodynamic stable. No overt concerns overnight. Will attempt to see patient after surgery. She is planned for a right lumbar laminectomy at the L3- L4 level today. PDMP PDMP Reviewed: Not Reviewed Attestations 2 Medical Necessity Statement*: Planned OR intervention today Coding Level of Care Code Acute Code for Chg Fwd Diagnoses Right foot drop M21.371 Lumbar herniated disc M51.26 Lumbar radiculopathy M54.16 Spinal region: lumbar Lumbar back pain M54.50
[2024-06-30 21:53] LABS: Glucose Point of Care 257 mg/dL (70-110)
[2024-06-30] MEDS: insulin lispro 100 unit/1 mL SUBCUT (22:00)
[2024-06-30] MEDS: atorvastatin 40 mg Tablet PO (22:00)
[2024-06-30] MEDS: zolpidem 5 mg Tablet PO (22:01)
[2024-07-01] VITALS: BP 129/74; PULSE 63; RESP 16; TEMP 36.6; O2SAT 94
[2024-07-01 04:00] VITALS: BP 149/66; PULSE 59; RESP 18; TEMP 36.5; O2SAT 93
[2024-07-01 06:00] VITALS: BMI 30.1
[2024-07-01 07:05] LABS: Glucose Point of Care 132 mg/dL (70-110)
[2024-07-01 07:12] LABS: Basophils % 0.1 %; Eosinophils % 0.2 %; Lymphocytes # 2.2 10^3/uL (0.8-4.8); Lymphocytes % 13.1 %; Mean Corpuscular HGB Conc 34.3 g/dL (30-55); Mean Corpuscular Hemoglobin 33.2 pg (27-33); Mean Corpuscular Volume 96.9 fl (85-98); Mean Platelet Volume 9.6 fL (7.4-10.4); Monocytes # 0.8 10^3/uL (0.2-0.9); Monocytes % 4.9 %; Neutrophils # 13.74 10^3/uL (1.8-7.7); Neutrophils % 81.2 %; Nucleated Red Blood Cells % 0 %; Platelet Count 276 10^3/cmm (157-399); Red Blood Count 4.13 10^6/uL (3.85-5.65); Red Cell Distribution Width 13.7 % (12.1-15.1); White Blood Count 16.92 10^3/uL (3.29-11.43)
[2024-07-01 07:32] LABS: Alanine Aminotransferase 9 U/L (0-33); Albumin Level 4.4 g/dL (3.5-5.2); Alkaline Phosphatase 47 U/L (35-105); Anion Gap 17.1 (5-19); Aspartate Amino Transferase 12 U/L (0-32); Blood Urea Nitrogen 12 mg/dL (6-20); Calcium 9.4 mg/dL (8.5-10.5); Carbon Dioxide 23 mmol/L (22-29); Chloride 103 mmol/L (98-107); Globulin 2.9 g/dL (1.3-4.6); Glomerular Filtration Rate 129.6 mL/min (90-130); Glucose 126 mg/dL (65-115); Osmolality Calculated 289 mOsm/kg (285-295); Potassium 4.1 mmol/L (3.5-5.1); Sodium 139 mmol/L (136-145); Total Bilirubin 0.3 mg/dL (0.15-1.2); Total Protein 7.3 g/dL (6.6-8.7)
[2024-07-01 08:00] VITALS: BP 141/72; PULSE 67; RESP 17; TEMP 36.6; O2SAT 90
[2024-07-01] MEDS: metoprolol tartrate 50 mg Tablet 100 MG PO (08:04)
[2024-07-01] MEDS: HYDROcodone-acetaminophen 5-325 mg Tablet 1 TAB PO (08:04)
[2024-07-01] MEDS: metoprolol succinate ER (24 HR) 100 mg Tablet 200 MG PO (08:04)
[2024-07-01] MEDS: sertraline 100 mg Tablet PO (08:04)
[2024-07-01] MEDS: levothyroxine 175 mcg Tablet PO (08:04)
[2024-07-01] MEDS: amlodipine 10 mg Tablet PO (08:04)
[2024-07-01] MEDS: sennosides-docusate Tablet 1 TAB PO (10:34)
[2024-07-01 10:51] VITALS: BP 141/72; PULSE 67; RESP 17; TEMP 36.6; O2SAT 90
--- NOTE | 2024-07-01 10:52 | PC.NURSE ---
Discharge instructions provided to pt. Paper scripts taken by this nurse to [facility]. Pt has no questions or concerns at this time. Awaiting to arrive and drive her home.
--- NOTE | 2024-07-01 14:32 | P.DS_ITS ---
Discharge Providers Date of Admission: 06/28/24 14:24 Date of Discharge: July 01, 2024 Attending Provider at Admission: James Cates Attending Provider at Discharge: Gema Zelaya MD Diagnoses at Discharge Discharge Diagnosis (1) Right foot drop: Status: Acute (2) Lumbar herniated disc: Status: Acute (3) Radiculopathy: Status: Acute Qualifiers: Spinal region: lumbar Qualified Code(s): M54.16 - Radiculopathy, lumbar region (4) Lumbar back pain: Status: Acute Reason for Visit Reason for Visit: lower back pain Brief History: Irma Vaz is a 53 year old female past medical history of hyperlipidemia, hypertension, diabetes mellitus, back surgery with post op DVT (no longer on OAC) and history of lap band surgery with postoperative blood clot presents with right leg weakness and difficulty walking for past 3 weeks.work up included a lumbar CT followed by an lumbar MRI which showed Right L3-L4 paracentral disc extrusion with caudal migration posterior to the L4 vertebral body, causing compression of the right L4 nerve. no evidence of cord compression. Ortho was consulted. Patient underwent Right L3-4 laminectomy with partial facetectomy and discectomy yesterday and tolerated the procedure well. She feels that the pain is much improved after the procedure. She is able to plantarflex more freely. She think dorsiflexion strength is also improving. She is being discharged today in stable condition with recommendation to follow-up with or thopedics in the next week. Physical Exam Narrative: General: No acute distress, AO x3 HEENT: PERRLA, pupils bilaterally equal and reactive, pallors not present Chest: Normal vesicular breath sounds, no added sounds, equal good air entry bilaterally CVS: S1-S2 regular, no murmurs, no tachycardia, no gallops, no rubs Abdomen: Soft, nontender, no organomegaly, bowel sounds present Neuro: No focal deficits, no facial deformity, AO x3, power 5/5 in all limbs Discharge Data Studies Completed and Pending Completed Studies During Hospitalization Category Date Time Status CT lumbar spine wo con* [id number] Stat Cat Scan 06/28/24 10:12 Completed MR lumbar spine wo con* [id number] Stat MRI 06/28/24 11:58 Completed US echo complete [CV. echo complete* [id number]] Routine Ultrasound 06/28/24 16:18 Completed Radiology Impressions Lumbar Spine CT 06/28/24 10:12 IMPRESSION: 1. Post posterior decompression at L3-L5. 2. Mild multilevel bony canal stenosis and [id number] neural foraminal narrowing. Lumbar Spine MRI 06/28/24 11:58 IMPRESSION: Right L3-L4 paracentral disc extrusion with caudal migration posterior to the L4 vertebral body, causing compression of the right L4 nerve. Laboratory Results WBC 16.92 10^3/uL (3.29-11.43) H 07/01/24 06:56 RBC 4.13 10^6/uL (3.85-5.65) 07/01/24 06:56 Hgb 13.70 g/dL (11.27-16.99) 07/01/24 06:56 Hct 40.0 % (36-47) 07/01/24 06:56 MCV 96.9 fl (85-98) 07/01/24 06:56 MCH 33.2 pg (27-33) H 07/01/24 06:56 MCHC 34.3 g/dL (30-55) 07/01/24 06:56 RDW 13.7 % (12.1-15.1) 07/01/24 06:56 Plt Count 276 10^3/cmm (157-399) 07/01/24 06:56 MPV 9.6 fL (7.4-10.4) 07/01/24 06:56 Neut % (Auto) 81.2 % 07/01/24 06:56 Lymph % (Auto) 13.1 % 07/01/24 06:56 Coles % (Auto) 4.9 % 07/01/24 06:56 Eos % (Auto) 0.2 % 07/01/24 06:56 Baso % (Auto) 0.1 % 07/01/24 06:56 Neut # (Auto) 13.74 10^3/uL (1.8-7.7) H 07/01/24 06:56 Lymph # (Auto) 2.2 10^3/uL (0.8-4.8) 07/01/24 06:56 Coles # (Auto) 0.8 10^3/uL (0.2-0.9) 07/01/24 06:56 Eos # (Auto) 0.0 10^3/uL (0.0-0.8) 07/01/24 06:56 Baso # (Auto) 0.0 10^3/uL (0.0-0.1) 07/01/24 06:56 Nucleated RBC % (auto) 0 % 07/01/24 06:56 Nucleated RBCs # 0.0 /100WBC 07/01/24 06:56 Sodium 139 mmol/L (136-145) 07/01/24 06:56 Potassium 4.1 mmol/L (3.5-5.1) 07/01/24 06:56 Chloride 103 mmol/L (98-107) 07/01/24 06:56 Carbon Dioxide 23 mmol/L (22-29) 07/01/24 06:56 Anion Gap 17.1 (5-19) 07/01/24 06:56 BUN 12 mg/dL (6-20) 07/01/24 06:56 Creatinine 0.5 mg/dL (0.5-0.9) 07/01/24 06:56 GFR Calculation 129.6 mL/min (90-130) 07/01/24 06:56 Glucose 126 mg/dL (65-115) H 07/01/24 06:56 POC Glucose 132 mg/dL (70-110) H 07/01/24 06:36 Calculated Osmolality 289 mOsm/kg (285-295) 07/01/24 06:56 Calcium 9.4 mg/dL (8.5-10.5) 07/01/24 06:56 Total Bilirubin 0.3 mg/dL (0.15-1.2) 07/01/24 06:56 AST 12 U/L (0-32) 07/01/24 06:56 ALT 9 U/L (0-33) 07/01/24 06:56 Alkaline Phosphatase 47 U/L (35-105) 07/01/24 06:56 Total Protein 7.3 g/dL (6.6-8.7) 07/01/24 06:56 Albumin 4.4 g/dL (3.5-5.2) 07/01/24 06:56 Globulin 2.9 g/dL (1.3-4.6) 07/01/24 06:56 TSH 0.28 uIU/mL (0.27-4.20) 06/29/24 03:16 Vitals Last Vital Signs Temp 97.9 F 03/18/25 10:51 Pulse 67 07/01/24 10:51 Resp 17 07/01/24 10:51 BP 141/72 07/01/24 10:51 Pulse Ox 90 07/01/24 10:51 O2 Del Method Room Air 07/01/24 08:00 Discharge Plan Discharge Patient Disposition: Home Condition: Stable Prescriptions: New cyclobenzaprine 10 mg tablet 10 mg PO Q8H PRN (Reason: muscle spasm) Qty: 20 0RF hydrocodone-acetaminophen 5-325 mg tablet 1 tab PO Q6H PRN (Reason: pain) Qty: 20 0RF prednisone 20 mg tablet 60 mg PO DAILY Qty: 20 0RF Rx Instructions: 3 tabs (60 mg) x 3 days. 2 tabs (40 mg) x 3 days. 1 tab (20 mg) x 3 days. 1/2 tab (10 mg) x 4 days diclofenac sodium 50 mg tablet,delayed release (DR/EC) 50 mg PO BID PRN (Reason: pain) Qty: 14 0RF hydrocodone-acetaminophen 5-325 mg tablet 1 - 2 tab PO .Q4-6H Qty: 40 0RF acetaminophen 325 mg Tablet 650 mg PO Q6H PRN (Reason: Mild/Mod Pain Or Temp >/= 101) Qty: 0 0RF senna 8.6 mg capsule 8.6 mg PO DAILY Qty: 30 0RF Continued levothyroxine 175 mcg tablet 175 mcg PO DAILY metoprolol succinate 100 mg tablet extended release 24 hr 200 mg PO DAILY rosuvastatin 40 mg tablet 40 mg PO DAILY amlodipine-valsartan 10-320 mg tablet 1 tab PO DAILY Discontinued acetaminophen [Tylenol Extra Strength] 500 mg Tablet 1,000 mg PO Q6H PRN (Reason: Fever Or Pain) Discharge Orders: Discharge Order (Routine); Ordered 06/30/24 Ordered By: Prateek Lobo Referrals: Prateek Lobo, [Physician] - 07/08/24 1:45 pm (Keep your scheduled appointment with Dr. Lobo.) Discharge Diet: Regular Discharge Activity: Increase activity as tolerated Patient Instructions: Hydrocodone/Acetaminophen (By mouth), Acute Wound Care (DC), Opioid Safety, Post Anesthesia Care, Pain Management Activity Restrictions/Additional Instructions: Thank you for [facility] for your care! The following is a list of instructions, from your provider, to follow upon your discharge to ensure you have the optimal recovery from your recent injury orsurgery. Follow-up care is a noland part of your treatment and safety. Be sure to make and go to all appointments, and call your doctor if you are having problems. If you do not already have a follow-up appointment made, call Dr. Lobo office in the next 1-3 days to make follow up appointment for 2 weeks at [phone]. It is also a good idea to know your test results and keep a list of the medicines you take. Medications will be prescribed for you at your provider's discretion. These medications are to be used as instructed; if they are taken more often that prescribed they will not be refilled early and in most cases will not be refilled at all. > When a refill is needed,you should contact queenie lopez 2-3 business days before your prescription runs out. Medications will NOT be refilled by early intervention specialist providers after hours! > Many pain medications contain Tylenol (Acetaminophen). Do not consume more than 4,000 mg of Tylenol per day in total with any combination ofmedications. > Pain medications can cause constipation. Please use an over the counter stool softener as directed, while taking pain medications. Consulty our local pharmacist with questions or recommendations on stool softeners. If constipation persists, contact our office or your primary care provider. > While under our care,you are not to receive pain medications or other controlled substances from any other provider unless our office is notified and approves. Any attempts to do so will result in refusal to prescribe any further pain medications and possible dismissal from our practice. ? Your wound and/or dressing should remain clean and dry for 2 days after surgery. On postoperative day 2 (48 hours after your surgery) the dressing (if present) should be removed and it is okay to shower and get the incision wet. Pad dry afterwards. No further dressing should be required from that point on. Do not put any creams or ointments on theincision > It is normal for there to be a small amount of discharge (bloody or blood tinged) present from a surgical wound for the first 1-3days. > The wound should be examined twice a day for signs of infection. Mild redness or bruising is to be expected but indications that an infection maybe starting would include; An increase in redness, swelling, or discharge, a foul odor present around the incision, and/or a fever greater than 101 ?F ? Showering is permitted, however we ask that you do not take a bath, sit in a whirlpool / Jacuzzi, or go swimming for 1 month. For only the first 2 days after surgery, lt wilt be necessary for you to cover your wound/dressing with plastic and tape to keep it dry. ? Walking is essential for the healing process after surgery. We would like you to slowly advance your walking. This should be done on relatively flat clear ground (inside or out) or can be done on a treadmill. Remember this goal does not have to happen all at once, slowly increase your distance and duration. This can be broken into more more than one walk per day as tolerated. Patients who walk as directed after surgery rarely require Physical Therapy. In the unlikely event this issue arises your provider will direct hospital staff to make the appropriate arrangements. ? No lifting over 5 pounds {a gallon of milk) or bending/twisting until further notice. Each of these activities places an unnecessary amount of stress onto the body and can impede the delicate healing process. > Instead of bending at the waist, keep your back straight and bend at the knees. > Instead of twisting your torso, keep your back straight and turn your entire body with your feet. ? You may sleep in any position which makes you comfortable. Many patients find comfort sleeping in a reclining chair. It is not abnormal to have difficulty sleeping for the first several weeks following your surgery. We recommend trying Benadry! or Tylenol PM as directed to help with your sleeping difficulties. Both medications are over the counter and available withoutprescription. ? NO SMOKING!!! Smoking dramatically increases the probability of developing postoperative wound infections. ? Common complaints after lumbar and/or thoracic spine surgery include, but are not limited to: numbness and/or tingling in the legs, pain around the incision and surrounding tissues, muscle spasms, or stiffness of the middle to low back. Contact our office if these symptoms persist or if an acute change occurs. ? No driving for the first 3-5days, and not while taking narcotics until seen at your follow-up appointment and cleared. There are no restrictions for riding on short trips, however if you take a longer trip, arrangements should be made to make regular stops to get out of the vehicle and stretch . ? Swelling is an unfortunate event that will take place with any surgery and is the primary source of your postoperative discomfort. While walking and regular approved activities helps control inflammation, there are additional steps you can take to minimizeswelling. > Place ice over the surgical site and surrounding tissue for twenty minutes, followed by applying a low/medium heat (heating pad) for an additional twenty minutes every 1-2 hours as needed for painrelief. > You may use of over the counter anti-inflammatory medications (Ibuprofen, Motrin, Aleve, Advil, etc) as directed on the package label. These types of medicines wm significantly reduce the amount of discomfort you experience after surgery from swelling. It should be noted that if you have and allergy to any of these medications, or a history of ulcers or kidney disease you should consult you primary care provider prior to starting these medications. Thank you for choosing [facility] for your healthcare needs today. Please realize this is an emergency room and that we are providing you with a medical screening exam and this may not be complete and all inclusive of all the testing and or work up that you may need to determine your ailment or severity of your illness. You have been screened and evaluated and felt safe for discharge. Health conditions do change or evolve sometimes and as such it is important that you follow up with your Primary Doctor to be re checked, 3-5 days is a general good time frame for follow up. You are always welcome to return to the ED for re assessment if your symptoms are worsening or you have new concerns Discharge Attestations Time Spent in Discharge Care*: greater than 30 min Quality Metrics Clinical Quality Measures [ No reported AMI, CVA or VTE this stay] Coding Level of Care Code Acute Code for Chg Fwd Diagnoses Right foot drop M21.371 Lumbar herniated disc M51.26 Lumbar radiculopathy M54.16 Spinal region: lumbar Lumbar back pain M54.50
== END 2024-07-01 11:04 | disposition home or self-care (01) | DRG 520 ==
LOC: ER 14:34 → MEDSURG 14:50
PROVIDERS: Orthopaedic Surgery; Admitting Provider Hospitalist; Emergency Provider Emergency Medicine; Visit Provider Student in an Organized Health Care Education/Training Program
PROC: 0SB20ZZ Excision of Lumbar Vertebral Disc, Open Approach (ICD-10-PCS; principal; 2024-06-30 15:50)
DX: M51.16 Intervertebral disc disorders with radiculopathy, lumbar region (principal); M21.371 Foot drop, right foot; E78.5 Hyperlipidemia, unspecified; I10 Essential (primary) hypertension; E11.9 Type 2 diabetes mellitus without complications; Z86.718 Personal history of other venous thrombosis and embolism; Z98.84 Bariatric surgery status; F17.210 Nicotine dependence, cigarettes, uncomplicated; F12.90 Cannabis use, unspecified, uncomplicated; E03.9 Hypothyroidism, unspecified; R01.1 Cardiac murmur, unspecified
CPT/HCPCS: 36415; 36416; 72100; 72131; 72148; 76000; 80048; 80053; 82962; 84443; 85025; 93306; 96372; 96374; 96375; 97161; 99285; J0131; J0690; J1100; J1650; J1815; J1885; J2060; J2250; J2270; J2360; J2405; J2704; J3010; J3490; J7030; J9999